=== PATIENT | female | born 1995 | race African-American/Black ===

== ENCOUNTER 2017-02-13 02:04 | Emergency (ER) | payer OTHER ==
[~2017-02-13] VITALS: Ht 165.1 cm; Wt 66.0 kg
[2017-02-13] MEDS ORDERED: KETOROLAC 60MG/2ML VIAL IM ONE (03:00)
[2017-02-13 03:13] LABS: CLARITY URINE CLEAR (CLEAR); COLOR URINE YELLOW (YELLOW); GLUCOSE URINE NEGATIVE (NEGATIVE); KETONES URINE NEGATIVE (NEGATIVE); LEUKOCYTE ESTERASE URINE NEGATIVE (NEGATIVE); NITRITE URINE NEGATIVE (NEGATIVE); OCCULT BLOOD URINE NEGATIVE (NEGATIVE); PROTEIN URINE NEGATIVE (NEGATIVE)
[2017-02-13 05:07] VITALS: BP 132/80
== END 2017-02-13 05:09 | disposition home or self-care (01) ==
LOC: ER 02:04
DX: N83.209 Unspecified ovarian cyst, unspecified side (principal)
CPT/HCPCS: 76830; 76856; 81003; 81025; 96372; 99285; J1885

== ENCOUNTER 2019-11-10 09:43 | Emergency (ER) | payer SELFPAY ==
[~2019-11-10] VITALS: Ht 165.1 cm; Wt 73.0 kg
[2019-11-10] MEDS ORDERED: KETOROLAC 60MG/2ML VIAL IM ONE (11:15)
[2019-11-10] MEDS ORDERED: ACETAMINOPHEN 325MG TABLET PO ONE (11:15)
[2019-11-10 11:57] VITALS: BP 120/70
== END 2019-11-10 11:58 | disposition home or self-care (01) ==
LOC: ER 09:43
DX: J06.9 Acute upper respiratory infection, unspecified (principal); R03.0 Elevated blood-pressure reading, without diagnosis of hypertension
CPT/HCPCS: 96372; 99283; J1885